=== PATIENT | male | born 1990 | race Caucasian/White ===

== ENCOUNTER → 2023-11-06 06:26 | Day surgery (SDC) | payer OTHER, SELFPAY | LOC: GI 06:26 | PROVIDERS: ATTENDING PHYSICIAN Internal Medicine Gastroenterology | DX: Z09 Encounter for follow-up examination after completed treatment for conditions other than malignant neoplasm (principal); Z87.19 Personal history of other diseases of the digestive system | CPT/HCPCS: 45380; 88305 ==

== ENCOUNTER → 2023-12-02 10:50 | Outpatient (REF) | payer OTHER, SELFPAY | LOC: MRI 3T 10:50 | PROVIDERS: ATTENDING PHYSICIAN Physician Assistant; FAMILY PHYSICIAN Physician Assistant Medical | DX: K50.90 Crohn's disease, unspecified, without complications (principal) | CPT/HCPCS: 72197; 74183; A9575 ==